=== PATIENT | male | born 1935 | race Caucasian/White ===

== ENCOUNTER 2017-03-02 13:41 | Emergency (ER) | payer OTHER, BC ==
[2017-03-02 14:15] VITALS: PULSE 62; BMI 25.0
[2017-03-02 14:32] LABS: BASOPHIL 0.7 % (0-2.0); EOSINOPHIL 2.6 % (0-4.5); MCH 30.5 pg (25.7-33.7); MCHC 32.7 g/dl (32.0-35.9); MEAN CELL VOLUME 93.5 fl (80-96); MEAN PLT VOLUME 8.5 fl (7.5-11.1); NEUTROPHILS 67.9 % (42.8-82.8); PLATELET COUNT 246 K/MM3 (134-434); RDW 15.8 % (11.9-15.9); WHITE BLOOD COUNT 5.7 K/mm3 (4.0-10.0)
--- NOTE | 2017-03-02 14:33 | PDOC ---
History of Present Illness - General History Source: Patient Exam Limitations: No Limitations <Diana Naranjo - Last Filed: 03/02/17 16:02> <Zachary Soares - Last Filed: 03/02/17 16:19> - General Chief Complaint: Tachycardia Stated Complaint: HIGH BLOOD PRESSURE Time Seen by Provider: 03/02/17 14:18 - History of Present Illness Initial Comments: 03/02/17 15:48 The patient is a 81 year old male with a significant PMH of hypothyroidism, anemia, HTN, HLD, A fib and atrial flutter (s/p pacemaker on eliquis) who presents to the emergency department complaining of a 10 minute episode of palpitations and lightheadedness this morning. The patient states he was at home resting prior to the onset of the palpitations and was not doing anything exertional. The patient states he called 911 but felt his symptoms improved prior to the arrival of the ambulance. The patient denies shortness of breath, headache and dizziness. Denies cough, fever, chills, nausea, vomit, diarrhea and constipation. Denies bloody stools, dysuria, frequency, urgency, and hematuria. pt was asymptomatic this morning and the last few days. pt notes that he is fairly active, has been working out in a limited fashion since his knee surgery and has not sob/alvarado/palpitations with exertion. Allergies: NKA Past surgical history: 2 knee surgeries, s/p pacemaker Social history: No reported alcohol, drug, or cigarette use. PCP: Dr. Austin Deng Returned Goods Sorter: Dr. Chapin Stevens (Diana Naranjo) Past History <Diana Naranjo - Last Filed: 03/02/17 16:02> - Suicide/Smoking/Psychosocial Hx Smoking History: Unknown if ever smoked <Zachary Soares - Last Filed: 03/02/17 16:19> - Past Medical History Allergies/Adverse Reactions: Allergies Allergy/AdvReac Type Severity Reaction Status Date / Time No Known Allergies Allergy Verified 03/02/17 14:15 Home Medications: Ambulatory Orders Amlodipine Besylate [Norvasc -] 2.5 mg PO DAILY 03/02/17 Apixaban [Eliquis] 5 mg PO DAILY 03/02/17 Bisoprolol 2.5MG/Hctz 6.25MG [Ziac 2.5/6.25 mg (Nf) -] 0.5 tab PO DAILY Cholecalciferol (Vitamin D3) [Vitamin D3] 2,000 unit PO DAILY 03/02/17 Cyanocobalamin [Vitamin B12 -] 500 mcg PO DAILY 03/02/17 Febuxostat [Uloric] 20 mg PO DAILY 03/02/17 Folic Acid 1 mg PO DAILY 03/02/17 Levothyroxine [Synthroid -] 25 mcg PO DAILY 03/02/17 Ramipril 10 mg PO DAILY 03/02/17 Review of Systems - Review of Systems Able to Perform ROS?: Yes <Diana Naranjo - Last Filed: 03/02/17 16:02> <Zachary Soares - Last Filed: 03/02/17 16:19> - Review of Systems Comments:: 03/02/17 15:49 Constitutional: No reported: Fever, Chills, weakness, unexplained weight loss HEENT: No reported: vision changes, congestion, sore throat Respiratory: No reported: cough, sob, hemoptysis Cardiac: (+) Palpitations. (+) Lightheadedness. No reported: chest pain, leg swelling Abd/GI: No reported: abd pain, nausea, vomiting, blood per rectum, melena, diarrhea : No reported: dysuria, frequency, discharge Musculoskeletal: No reported: back pain, neck pain, joint swelling Skin: No reported: bruising, erythema, rash Neurological: No reported: headache, numbness, focal weakness, tingling, ataxia , weakness Hematologic: No reported anemia, easy bruising, easy bleeding 03/02/17 16:02 (Diana Naranjo) *Physical Exam <Diana Naranjo - Last Filed: 03/02/17 16:02> <Zachary Soares - Last Filed: 03/02/17 16:19> - Vital Signs Last Vital Signs Temp Pulse Resp BP Pulse Ox 98 F 62 20 180/82 100 03/02/17 13:42 03/02/17 13:42 03/02/17 13:42 03/02/17 13:42 03/02/17 13:42 - Physical Exam Comments: 03/02/17 15:50 GENERAL: The patient is awake, alert, and fully oriented, Nontoxic - in no acute distress. HEAD: Normocephalic, atraumatic. EYES: extraocular movements intact, sclera anicteric, conjunctiva clear. ENT: Normal voice, Moist mucous membranes. NECK: Normal range of motion, supple LUNGS: Breath sounds equal, clear to auscultation bilaterally. No wheezes, no rhonchi, no rales. HEART: Regular rate and rhythm, PM in chest ABDOMEN: Soft, nontender, normoactive bowel sounds. No guarding, no rebound. . No CVA tenderness EXTREMITIES: Normal range of motion, no edema. NEUROLOGICAL: No facial assymetry, Normal speech, moving all 4 extremities spontaneously PSYCH: Normal mood, normal affect. SKIN: Warm, Dry, normal turgor, (Diana Naranjo) Heart Score/ECG Review <Diana Naranjo - Last Filed: 03/02/17 16:02> <Zachary Soares - Last Filed: 03/02/17 16:19> - ECG Impressions Comment:: 03/02/17 15:44 Twelve-lead EKG was performed and reviewed by me. Atrial paced rhythm rate of 60 Right bundle-branch block Prolonged CO interval T wave inversion in lead 3 (Zachary Soares) ED Treatment Course - LABORATORY CBC & Chemistry Diagram: 03/02/17 14:22 03/02/17 14:22 <Diana Naranjo - Last Filed: 03/02/17 16:02> - LABORATORY CBC & Chemistry Diagram: 03/02/17 14:22 03/02/17 14:22 <Zachary Soares - Last Filed: 03/02/17 16:19> - ADDITIONAL ORDERS Additional order review: Laboratory Results 03/02/17 03/02/17 14:22 14:22 Sodium 140 Potassium 4.3 Chloride 107 Carbon Dioxide 25 Anion Gap 8 BUN 30 H Creatinine 1.5 H Creat Clearance w eGFR 44.69 Random Glucose 105 Calcium 8.6 Total Bilirubin 0.4 AST 12 L ALT 18 Alkaline Phosphatase 70 Creatine Kinase 68 66 Troponin I < 0.02 0.02 Total Protein 7.3 Albumin 3.6 03/02/17 14:22 RBC 4.01 MCV 93.5 MCHC 32.7 RDW 15.8 MPV 8.5 Neutrophils % 67.9 Lymphocytes % 18.2 Monocytes % 10.6 H Eosinophils % 2.6 Basophils % 0.7 Medical Decision Making <Diana Naranjo - Last Filed: 03/02/17 16:02> <Zachary Soares - Last Filed: 03/02/17 16:19> - Medical Decision Making 03/02/17 14:48 81y M hx of afib with ICD, hypothyroidism, htn, hl, present with complaint of palpitations that started suddenly lasting for approximately 10 no associated cp , sob, melena/bpr, leg edema, alvarado. pt currently asypmtomatic exam unremarkble ekg unremarkble will obtian lab work to r/o anemia, metabolic dernagement discussed with [employer] regarding interrogation of device will notify dr. stevens A portion of this note was documented by scribe services under my direction. I have reviewed the details of the note, within reason, and agree with the documentation with the following case summary and management plan written by me 03/02/17 16:17 pts labs reviewed pts device interogated by [employer] and no event recorded discussed with dr desai - states he thinks it was his BP that was elevated to 200s, not his HR. but pts labs are fine will dc the pt with pmd fu return precuations were discussed I discussed the physical exam findings, ancillary test results and final diagnoses with the patient. I answered all of the patient's questions. The patient was satisfied with the care received and felt comfortable with the discharge plan and treatment plan. The patient will call their primary care physician within 24 hours to arrange follow-up and will return to the Emergency Department with any new, persistent or worsening symptoms. (Zachary Soares) *DC/Admit/Observation/Transfer <Diana Naranjo - Last Filed: 03/02/17 16:02> - Discharge Dispostion Admit: No <Zachary Soares - Last Filed: 03/02/17 16:19> Diagnosis at time of Disposition: Palpitations Hypertension Qualifiers: Hypertension type: unspecified Qualified Code(s): I10 - Essential (primary) hypertension - Discharge Dispostion Disposition: HOME Condition at time of disposition: Improved - Referrals Referrals: Chapin Stevens MD [Non Staff, Medical] - - Patient Instructions Printed Discharge Instructions: DI for Palpitations Additional Instructions: Return to the emergency department immediately with ANY new, persistent or worsening symptoms. Increase your amlodipine as directed by Dr. Stevens You MUST call and follow up with your doctor tomorrow for further evaluation of your symptoms. Results were discussed with you. Please make sure your doctor reviews the results of your emergency evaluation. Print Language: THAI - Attestations Scribe Attestion: 03/02/17 15:50 Documentation prepared by Diana Naranjo, acting as director of graduate medical education for Zachary Soares MD. (Diana Naranjo)
[2017-03-02 15:01] LABS: ALBUMIN 3.6 g/dl (3.4-5.0); ANION GAP 8 (8-16); BILIRUBIN,TOTAL 0.4 mg/dL (0.2-1.0); CALCIUM 8.6 mg/dL (8.5-10.1); CO2 25 mmol/L (21-32); CPK 66 IU/L (39-308); CREATININE 1.5 mg/dL (0.7-1.3); GLUCOSE,RANDOM 105 mg/dL (74-106); SGOT/AST 12 U/L (15-37); SGPT/ALT 18 U/L (12-78); TOT PROT 7.3 g/dl (6.4-8.2)
[2017-03-02 15:03] LABS: ALK PHOS 70 U/L (45-117); TROPONIN I 0.02 ng/ml (0.00-0.05)
[2017-03-02 15:09] LABS: CPK 68 IU/L (39-308); TROPONIN I < 0.02 ng/ml (0.00-0.05)
[2017-03-02 16:49] VITALS: BP 175/82; TEMP 98.5
[2017-03-02 19:37] LABS: THYROID STIMULATING HORMONE 5.16 uIU/ml (0.358-3.74)
--- NOTE | 2017-03-06 01:49 | EKG ---
Test Reason : Blood Pressure : / mmHG Vent. Rate : 060 BPM Atrial Rate : 060 BPM P-R Int : 000 ms QRS Dur : 138 ms QT Int : 462 ms P-R-T Axes : -28 -17 -08 degrees QTc Int : 462 ms Atrial-paced rhythm with prolonged AV conduction RIGHT BUNDLE BRANCH BLOCK MINIMAL VOLTAGE CRITERIA FOR LVH, MAY BE NORMAL VARIANT INFERIOR INFARCT (CITED ON OR BEFORE 10-MAR-2010) ABNORMAL ECG WHEN COMPARED WITH ECG OF 20-MAR-2010 10:21, ELECTRONIC ATRIAL PACEMAKER HAS REPLACED SINUS RHYTHM Confirmed by GABBY ELIZONDO MD ([id number]) on 03/06/2017 1:49:18 AM Referred By: Confirmed By:GABBY ELIZONDO MD
== END 2017-03-02 16:55 | disposition home or self-care (01) ==
LOC: JER 13:41
DX: R00.2 Palpitations (principal); I48.91 Unspecified atrial fibrillation; Z79.01 Long term (current) use of anticoagulants; I10 Essential (primary) hypertension; D64.9 Anemia, unspecified; E78.5 Hyperlipidemia, unspecified; Z95.0 Presence of cardiac pacemaker
CPT/HCPCS: 36415; 80053; 82550; 84443; 84484; 85025; 93005; 93010; 99284-25

== ENCOUNTER 2021-03-25 12:57 | Emergency (ER) | payer OTHER, BC ==
[2021-03-25 13:14] VITALS: BP 134/53; PULSE 62; TEMP 97.4; BMI 22.2
[2021-03-25] MEDS ORDERED: CEPHALEXIN MONOHYDRATE 500 MG CAPSULE (UD) PO ONE (14:00)
[2021-03-25] MEDS ORDERED: CEPHALEXIN MONOHYDRATE 500 MG CAPSULE (UD) ONE ×2 (14:08→14:09)
== END 2021-03-25 14:24 | disposition home or self-care (01) ==
LOC: FER 12:57
DX: R22.31 Localized swelling, mass and lump, right upper limb (principal); M79.641 Pain in right hand; L03.113 Cellulitis of right upper limb
CPT/HCPCS: 73110-TC-LT-FY; 73130-TC-LT-FY; 99284-25